=== PATIENT | male | born 1955 | race Caucasian/White ===

== ENCOUNTER 2020-12-27 13:57 | Emergency (ER) | payer MEDICARE ==
[~2020-12-27] VITALS: Ht 180.3 cm; Wt 103.4 kg
[2020-12-27] MEDS ORDERED: COREG6.25 MG PO (14:14)
[2020-12-27] MEDS ORDERED: FORTAMET500 MG PO (14:14)
[2020-12-27] MEDS ORDERED: CLOPIDOGREL75 MG PO (14:15)
[2020-12-27] MEDS ORDERED: LIPITOR40 MG PO (14:15)
[2020-12-27] MEDS ORDERED: LISINOPRIL10 MG PO (14:15)
[2020-12-27] MEDS ORDERED: GLIPIZIDE ER5 MG PO (14:16)
== END 2020-12-27 15:34 | disposition home or self-care (01) ==
LOC: ED 13:57
DX: S83.92XA Sprain of unspecified site of left knee, initial encounter (principal); X50.1XXA Overexertion from prolonged static or awkward postures, initial encounter; I10 Essential (primary) hypertension; Z86.73 Personal history of transient ischemic attack (TIA), and cerebral infarction without residual deficits; E11.9 Type 2 diabetes mellitus without complications; Z79.899 Other long term (current) drug therapy; Z79.84 Long term (current) use of oral hypoglycemic drugs
CPT/HCPCS: 73560; 99283-25